=== PATIENT | male | born 1960 | race Two or more races ===

== ENCOUNTER 2023-10-31 09:25 | Emergency (ER) | payer MEDICAID, OTHER ==
[~2023-10-31] VITALS: Ht 165.1 cm; Wt 63.0 kg
[2023-10-31] MEDS ORDERED: PANTOPRAZOLE 40 MG VIAL ONE (09:55)
[2023-10-31] MEDS ORDERED: KETOROLAC TROMETHAMINE INJ 30 MG/ML VIAL ONE (09:56)
[2023-10-31] MEDS: IV NS 0.9% 1,000 ML BAG IV ONE (10:02)
[2023-10-31] MEDS: KETOROLAC TROMETHAMINE 15 MG/ML VIAL IV ONE (10:02)
[2023-10-31] MEDS: PANTOPRAZOLE 40 MG VIAL IV ONE (10:02)
[2023-10-31 10:14] LABS: BASOPHILS # (AUTO) 0.3 K/uL (0.0-0.2); BASOPHILS % (AUTO) 4.1 % (0.0-2.0); EOSINOPHILS # (AUTO) 0.1 K/uL (0.0-0.7); EOSINOPHILS % (AUTO) 1.8 % (0.0-6.0); HEMATOCRIT 45 % (39-51); HEMOGLOBIN 15.6 g/dL (13.5-17.5); LYMPHOCYTES # (AUTO) 1.4 K/uL (0.8-4.8); LYMPHOCYTES % (AUTO) 21.7 % (20.0-44.0); MEAN CORPUSCULAR HEMOGLOBIN 31 PG (26.0-33.0); MEAN CORPUSCULAR HGB CONC 35 g/dl (31.0-36.0); MEAN CORPUSCULAR VOLUME 88 fL (80-96); MONOCYTES # (AUTO) 0.5 K/uL (0.1-1.30); MONOCYTES % (AUTO) 7.8 % (2.0-12.0); NEUTROPHILS # (AUTO) 4.2 K/uL (1.8-8.9); NEUTROPHILS % (AUTO) 64.6 % (43.0-81.0); PLATELET COUNT (AUTO) 391 K/uL (150-450); RED BLOOD CELL COUNT(AUTO) 5.12 MIL/uL (4.5-6.0); RED CELL DISTRIBUTION WIDTH 13.2 % (11.5-15.0); WHITE BLOOD COUNT (AUTO) 6.5 K/uL (4.3-11.0)
[2023-10-31 10:16] LABS: CALCIUM, SERUM 9.6 mg/dL (8.5-10.1); CREATININE 0.9 mg/dL (0.6-1.3); POTASSIUM 3.8 mmol/L (3.5-5.1)
[2023-10-31 10:21] LABS: ALBUMIN 3.7 g/dL (3.4-5.0); BILIRUBIN,DIRECT 0.1 mg/dL (0.0-0.2); BILIRUBIN,TOTAL 0.7 mg/dL (0.2-1.0); TOTAL PROTEIN, SERUM 7.5 g/dL (6.4-8.2)
[2023-10-31] MEDS ORDERED: CT SWABBABLE VALVE TRANS SET 1 EA INFUS.SET MC ONE (11:04)
[2023-10-31] MEDS ORDERED: IOHEXOL-300 100 ML VIAL IV ONE (11:04)
[2023-10-31] MEDS ORDERED: IV NS 0.9% 250 ML IV ONE (11:04)
[2023-10-31] MEDS ORDERED: HYDR-4303 PO (12:37)
[2023-10-31] MEDS ORDERED: IBUP-1953 PO (12:37)
[2023-10-31 13:17] VITALS: BP 151/60; TEMP 97.5; O2SAT 100
== END 2023-10-31 13:18 | disposition home or self-care (01) ==
LOC: ER 09:29
DX: K57.32 Diverticulitis of large intestine without perforation or abscess without bleeding (principal); M54.42 Lumbago with sciatica, left side; M25.562 Pain in left knee; I10 Essential (primary) hypertension
CPT/HCPCS: 99285; 74177; 96374; 96361; 96375; 85025; 80048; 83690; 80076; 36415; J1885; J7030; J7050; C9113; Q9967